=== PATIENT | female | born 1960 | race Caucasian/White ===

== ENCOUNTER → 2016-11-25 | Outpatient (CLI) | payer BC ==
--- NOTE | ~2016-11-25 | MY11 ---
[facility] A Service of [facility] RADIOLOGY TEXT RESULTS PATIENT: RHIANNON LIN LOCATION: [facility] : 60 UNIT #: [id number] AGE: [address]: Ashley Khan MD SEX: F ORDER DR: [id number] [facility] [address] [place], [place] [address] [id number] O MR#: [id number] Acc #: [id number] NAME: RHIANNON LIN : 1960 SEX: F STUDY DATE/TIME: 11/25/2016 9:29 UNIT: [facility] ROOM: STUDY DESCRIPTION: MY Mammogram Screening Dig Stephen Attending Physician: Ashley Khan M.D. Referring Physician: Ashley Khan M.D. Ordering Physician: Ashley Khan M.D. Primary Care Physician: Ashley Khan M.D. MEDICAL IMAGING REPORT This report is preliminary unless electronic signature is present EXAM Digital screening mammogram, 11/25/2016, [facility]. HISTORY 56-year-old woman no risk elevation. Annual screen. COMPARISON Mammograms date to 12/28/2005 with most recent 04/09/2015. FINDINGS Digital imaging of each breast was completed utilizing standard craniocaudal and mediolateral-oblique projections. Review and interpretation of digital mammograms include a second review in conjunction with FDA-approved CAD device. There is an overall increase in the parenchymal presentation bilaterally with a generalized fibronodular pattern in each breast. There are no breast masses and I see no asymmetry in the parenchymal presentation. There are no suspicious microcalcifications and I see no architectural disturbance. IMPRESSION Benign mammogram. One-year followup recommended. Patients over the age of 40 are entered into a reminder system with target due date for the next mammogram. A result letter will also be sent to the patient. BIRADS: 2 Benign finding Dictated by... Pasquale Bravo M.D. [facility] A Service [facility] RADIOLOGY TEXT RESULTS PATIENT: RHIANNON LIN LOCATION: [facility] : 60 UNIT #: [id number] AGE: [address]: Ashley Khan MD SEX: F ORDER DR: THIS IS AN ELECTRONICALLY VERIFIED REPORT Pasquale Bravo M.D. at 11/25/2016 12:14 PM MELISSA/[email or web address] TD: 11/25/2016 11:38 JOB #: [id number] MEDICAL IMAGING REPORT Page 1 of 1 COPY
--- NOTE | ~2016-11-25 | BD1 ---
[facility] A Service of [facility] RADIOLOGY TEXT RESULTS PATIENT: RHIANNON LIN LOCATION: [facility] : 60 UNIT #: [id number] AGE: [address]: Ashley Khan MD SEX: F ORDER DR: [id number] [facility] [address] [place], [place] [address] [id number] O MR#: [id number] Acc #: [id number] NAME: RHIANNON LIN : 1960 SEX: F STUDY DATE/TIME: 11/25/2016 9:38 UNIT: [facility] ROOM: STUDY DESCRIPTION: BD Dexa Bone Dens 1+ Site Attending Physician: Ashley Khan M.D. Referring Physician: Ashley Khan M.D. Ordering Physician: Ashley Khan M.D. Primary Care Physician: Ashley Khan M.D. MEDICAL IMAGING REPORT This report is preliminary unless electronic signature is present EXAM DXA scan. DATE 11/25/2016 HISTORY 56-year-old postmenopausal female for osteoporosis screening. COMPARISON None FINDINGS L1-L4 total bone mineral density is 1.155 g/cm2 with a T-score of 1.0 and Z-score 2.2, within normal limits. The left femoral neck bone mineral density is 0.840 g/cm2 with a T-score of -0.1 and Z-score 1.0, within normal limits. IMPRESSION Normal bone mineral density within the lumbar spine and within the left femoral neck. Dictated by... Katie Becerra M.D. THIS IS AN ELECTRONICALLY VERIFIED REPORT Katie Becerra M.D. at 11/25/2016 5:02 PM [facility]/rosalinda TD: 11/25/2016 12:38 [facility] A Service of [facility] RADIOLOGY TEXT RESULTS PATIENT: RHIANNON LIN LOCATION: [facility] : 60 UNIT #: [id number] AGE: [address]: Ashley Khan MD SEX: F ORDER DR: JOB #: [id number] MEDICAL IMAGING REPORT Page 1 of 1 COPY
== END | disposition home or self-care (01) ==
LOC: CWCC 09:08
DX: Z13.820 Encounter for screening for osteoporosis (principal); Z82.62 Family history of osteoporosis; Z12.31 Encounter for screening mammogram for malignant neoplasm of breast
CPT/HCPCS: 77080; G0202